=== PATIENT | female | born 1965 | race African-American/Black ===

== ENCOUNTER 2017-09-10 11:26 | Emergency (ER) | payer OTHER ==
[2017-09-10] MEDS ORDERED: Nitroglycerin 0.4 MG TAB (25 Tab Bottle) ONE (11:50)
[2017-09-10 12:04] LABS: #Basophils 0.1 thou/uL (0.0-0.2); #Eosinphils 0.1 thou/uL (0.0-0.7); #Lymphocytes 3.9 thou/uL (1.20-3.40); #Monocytes 0.3 thou/uL (0.11-0.59); #Neutrophils 3.7 thou/uL (1.40-6.50); %Basophils 1.2 % (0.0-1.0); %Lymphocytes 48.1 % (21.0-51.0); %Monocytes 3.7 % (0.0-10.0); Hemoglobin 12.3 g/dL (12.0-16.0); Mean Corpuscular HGB CONC 31.2 g/dL (32.0-36.0); Mean Corpuscular Hemoglobin 28.2 pg (27.0-31.0); Mean Corpuscular Volume 90.3 fl (81.0-99.0); Mean Platelet Volume 6.3 fL (7.4-10.4); Platelet Count 269 thou/uL (130-400); RBC Distribution Width 12.6 % (11.5-14.5); Red Blood Cell (RBC) Count 4.38 mill/uL (4.20-5.40); White Blood Cell (WBC) Count 8.1 thou/uL (4.8-10.8)
[2017-09-10 12:18] LABS: Bilirubin Negative (Negative); Blood, Urine Large (Negative); Clarity Clear (Clear); Glucose, Urine (Dipstick) Negative (Negative); Leukocyte Negative (Negative); Nitrite Negative (Negative); Protein, Urine (Dipstick) Negative (Neg-Trace); Urobilinogen 0.2 mg/dL (0.2-1.0); pH, Urine 5.5 (5.0-9.0)
[2017-09-10 12:22] LABS: CKMB 0.6 ng/mL (0-6.6); Troponin I Less than 0.010 ng/mL (< 0.028)
--- NOTE | 2017-09-10 12:23 | RAD ---
ONE VIEW CHEST: History: Chest pain. Comparison: None. FINDINGS: AP upright chest demonstrates a normal cardiac silhouette. The pulmonary vessels and hilum are madeline l. No mass. No consolidation. No pneumothorax or osseous abnormality. IMPRESSION: No acute cardiopulmonary process. POS: [facility]
[2017-09-10 12:29] LABS: WBC/HPF 0-3 HPF (0-3)
[2017-09-10 12:30] LABS: Bacteria/HPF Rare-Few HPF (None Seen); Other Microscopic Description NO
[2017-09-10 12:54] LABS: ALT (SGPT) 25 U/L (8-55); AST (SGOT) 24 U/L (5-34); Alkaline Phosphatase 70 U/L (40-150); Anion Gap 15 mmol/L (10-20); BUN (Urea Nitrogen) 8 mg/dL (9.8-20.1); Bilirubin, Total 0.3 mg/dL (0.2-1.2); CK (CPK) 165 U/L (29-168); Calc. Creatinine Clearance 0 mL/min (70-130); Calcium 9.3 mg/dL (7.8-10.44); Carbon Dioxide 25 mmol/L (22-29); Chloride 105 mmol/L (98-107); Estimated GFR-MDRD Greater than 90; Globulin 3.4 g/dL (2.4-3.5); Glucose 117 mg/dL (70-105); Potassium 3.3 mmol/L (3.5-5.1); Protein, Total 7.4 g/dL (6.0-8.3); Sodium 142 mmol/L (136-145)
== END 2017-09-10 13:05 | disposition short-term general hospital (02) ==
LOC: NAV ERS 11:26
DX: R07.89 Other chest pain (principal); M19.90 Unspecified osteoarthritis, unspecified site; E66.9 Obesity, unspecified; F17.210 Nicotine dependence, cigarettes, uncomplicated
CPT/HCPCS: 71010; 80053; 81003; 81015; 82553; 84484; 85025; 93005

== ENCOUNTER 2017-12-25 09:54 | Emergency (ER) | payer OTHER ==
--- NOTE | 2017-12-25 11:09 | RAD ---
CHEST 2 VIEWS: Date: 12/25/17 COMPARISON: 08/31/15. HISTORY: Cough and shortness of breath. FINDINGS: No pneumothorax, pleural fluid, focal consolidation, or alveolar edema. Heart and mediastinal contour s are unremarkable. IMPRESSION: No acute findings. POS: [facility]
== END 2017-12-25 11:24 | disposition home or self-care (01) ==
LOC: NAV ERS 09:54
DX: J06.9 Acute upper respiratory infection, unspecified (principal); I10 Essential (primary) hypertension; E66.9 Obesity, unspecified; F17.210 Nicotine dependence, cigarettes, uncomplicated
CPT/HCPCS: 71046

== ENCOUNTER 2019-11-07 09:49 | Emergency (ER) | payer OTHER ==
[2019-11-07] MEDS ORDERED: Amoxicillin/Potassium Clav 875 MG TAB ONE (10:50)
== END 2019-11-07 10:58 | disposition home or self-care (01) ==
LOC: NAV ERS 09:49
DX: K04.7 Periapical abscess without sinus (principal)
CPT/HCPCS: 99282

== ENCOUNTER 2020-11-03 11:50 | Emergency (ER) | payer OTHER ==
--- NOTE | 2020-11-03 12:29 | RAD ---
EXAM: Chest PA and lateral: HISTORY: Cough COMPARISON: 12/25/2017 FINDINGS: Heart size:Borderline heart size. Lungs:Clear of acute process. No confluent pneumonia, overt edema, pleural effusion, or other acute process. IMPRESSION: No significant acute intrathoracic disease.
== END 2020-11-03 13:10 | disposition home or self-care (01) ==
LOC: NAV ERS 11:50
DX: S39.012A Strain of muscle, fascia and tendon of lower back, initial encounter (principal); F17.210 Nicotine dependence, cigarettes, uncomplicated
CPT/HCPCS: 71046

== ENCOUNTER 2022-09-04 00:04 | Emergency (ER) | payer BC, OTHER ==
[2022-09-04] MEDS ORDERED: Ibuprofen 200 MG TAB ONE (01:02)
[2022-09-04] MEDS ORDERED: methylPREDNISolone Acetate 40 mg/ml Vial ONE (01:54)
[2022-09-04] MEDS ORDERED: Benzonatate 100 MG CAP ONE (01:55)
== END 2022-09-04 02:35 | disposition home or self-care (01) ==
LOC: NAV ERS 00:04
DX: J20.9 Acute bronchitis, unspecified (principal); J06.9 Acute upper respiratory infection, unspecified; B34.9 Viral infection, unspecified; F17.210 Nicotine dependence, cigarettes, uncomplicated; Z20.822 Contact with and (suspected) exposure to COVID-19
CPT/HCPCS: 87804; 96372; 99283; J1030; U0003; U0005

== ENCOUNTER 2024-03-06 13:58 | Emergency (ER) | payer BC ==
[2024-03-06] MEDS ORDERED: Acetaminophen 500 MG TAB ONE (14:31)
[2024-03-06] MEDS ORDERED: Ketorolac Tromethamine 60 MG/2 ML VIAL ONE (14:31)
== END 2024-03-06 15:28 | disposition home or self-care (01) ==
LOC: NAV ERS 13:58
DX: M16.12 Unilateral primary osteoarthritis, left hip (principal); F17.210 Nicotine dependence, cigarettes, uncomplicated
CPT/HCPCS: 72170; 96372; J1885

== ENCOUNTER 2024-09-26 07:18 | Emergency (ER) | payer BC ==
[2024-09-26] MEDS ORDERED: methylPREDNISolone Acetate 40 mg/ml Vial ONE (07:52)
[2024-09-26 08:34] LABS: Bilirubin Small (Negative); Blood, Urine Large (Negative); Clarity Clear (Clear); Glucose, Urine (Dipstick) Negative (Negative); Ketone, Urine Trace mg/dL (Negative); Leukocyte Trace (Negative); Nitrite Negative (Negative); Protein, Urine (Dipstick) 100 mg/dL (Neg-Trace); Specific Gravity, Urine 1.025 (1.005-1.030); Urobilinogen 0.2 mg/dL (Less than 2); pH, Urine 5.5 (5.0-9.0)
[2024-09-26 08:40] LABS: RBC/HPF 0-3 HPF (0-3)
[2024-09-26 08:41] LABS: Bacteria/HPF Rare-Few HPF (None Seen); CAUTI Indications for Culture Pelvic or flank pain; Trichomonas/HPF 1+ HPF (None Seen)
[2024-09-26 08:42] LABS: Urine Culture Reflex No No
[2024-09-26] MEDS ORDERED: HYDROcodone/Acetaminophen 10/325 mg Tablet ONE (09:30)
[2024-09-26] MEDS ORDERED: Ketorolac Tromethamine 30 MG (1 mL) VIAL ONE (09:30)
[2024-09-27 05:32] LABS: Chlam.trachomatis by PCR,Urine Not Detected (NotDetected); GC N.gonorrhoeae PCR,UrineVOID Not Detected (NotDetected)
== END 2024-09-26 09:48 | disposition home or self-care (01) ==
LOC: NAV ERS 07:18
DX: M54.50 Low back pain, unspecified (principal); N28.9 Disorder of kidney and ureter, unspecified; A59.9 Trichomoniasis, unspecified; F17.210 Nicotine dependence, cigarettes, uncomplicated
CPT/HCPCS: 72131; 81001; 87491; 87591; 96372; J1010; J1885